=== PATIENT | male | born 1980 | race Caucasian/White ===

== ENCOUNTER 2020-10-05 09:35 | Outpatient (REF) | payer OTHER, SELFPAY ==
[2020-10-05 11:54] LABS: COVID-19 Test Negative (Negative)
== END 2020-10-05 09:36 | disposition home or self-care (01) ==
LOC: HO.EMPCOV 09:35
PROVIDERS: Visit Provider Internal Medicine
DX: Z20.828 Contact with and (suspected) exposure to other viral communicable diseases (principal)
CPT/HCPCS: 87635; C9803

== ENCOUNTER 2020-10-07 | Outpatient (REF) | payer OTHER, SELFPAY ==
[2020-10-09 14:46] LABS: CDIFF Ag Negative (Negative); CDiff Toxin Negative (Negative)
[2020-10-09 14:47] LABS: CDIFF Internal ctrl Dots and bkg OK (V)
[2020-10-15 14:58] LABS: H pylori Ag Stool Not Detected
== END 2020-10-07 00:01 | disposition home or self-care (01) ==
LOC: HO.LNP
PROVIDERS: Visit Provider Nurse Practitioner Family
DX: Z11.0 Encounter for screening for intestinal infectious diseases (principal)
CPT/HCPCS: 87045; 87046; 87177; 87209; 87324; 87338; 87449

== ENCOUNTER 2020-11-01 10:05 | Outpatient (REF) | payer OTHER, SELFPAY ==
[2020-11-01 10:48] LABS: MANUAL DIFF FLAG NO
[2020-11-01 10:52] LABS: Basophils Percent Auto 0.4 % (0-2); Eosinophils Absolute Auto 0.5 X10*3/uL (0.0-0.4); Eosinophils Percent Auto 5.3 % (0-4); Hematocrit 47.6 % (42-52); Hemoglobin 15.9 g/dl (14.0-18.0); Imm Gran Abs Auto 0.03 X10*3/uL (0.00-0.03); Imm Gran Pct Auto 0.3 % (0.0-0.4); Lymphocytes Absolute Auto 3.5 X10*3/uL (1.2-4.9); Lymphocytes Percent Auto 39.2 % (20-40); Mean Corpuscular HGB Conc 33.4 g/dl (31.0-36.0); Mean Corpuscular Hemoglobin 28.9 pg (27.0-33.0); Mean Corpuscular Volume 86.5 fL (80-98); Mean Platelet Volume 10.1 fL (9.4-12.4); Monocytes Absolute Auto 0.7 X10*3/uL (0.1-1.2); Monocytes Percent Auto 8.1 % (2-11); Neutrophils Absolute Auto 4.2 X10*3/uL (2.0-8.3); Neutrophils Percent Auto 46.7 % (45-73); Platelet Count 239 X10*3/uL (160-400); Red Cell Distribution Width 12.8 % (11.0-16.0); White Blood Count 8.9 X10*3/uL (4.8-10.8)
[2020-11-01 10:58] LABS: Estimated Average Glucose 103 mg/dL; Hemoglobin A1c % 5.2 %
[2020-11-01 11:24] LABS: Alanine Aminotransferase 41 U/L (0-40); Albumin Level 4.2 g/dL (3.5-5.0); Alkaline Phosphatase 72 U/L (39-117); Anion Gap 10 (12-20); Aspartate Amino Transferase 28 U/L (5-37); Bilirubin Direct 0.2 mg/dL (0.0-0.5); Bilirubin Total 0.7 mg/dL (0.0-1.0); Blood Urea Nitrogen 13 mg/dL (9-16); Calcium 8.5 mg/dL (8.4-10.2); Carbon Dioxide 25 mmol/L (22-29); Chloride 109 mmol/L (96-108); Cholesterol 144 mg/dL; Estimated Glomerular Filt Rate > 60; Glucose Fasting 92 mg/dL (60-99); HDL Cholesterol 39 mg/dL; LDL Cholesterol Calculated 87 mg/dl; Potassium 4.4 mmol/l (3.3-5.1); Sodium 140 mmol/L (135-145); Total Protein 7.6 g/dL (6.5-8.0); Triglycerides 91 mg/dL
[2020-11-01 11:39] LABS: TSH reflex Free T4 0.43 mIU/mL (0.32-4.0)
== END 2020-11-01 10:06 | disposition home or self-care (01) ==
LOC: HO.LAB 10:05
PROVIDERS: PCP Physician Assistant; Visit Provider Nurse Practitioner Family
DX: Z00.00 Encounter for general adult medical examination without abnormal findings (principal)
CPT/HCPCS: 36415; 80053; 80061; 80076; 82248; 83036; 84443; 85025

== ENCOUNTER 2020-11-25 00:10 | Outpatient (REF) | payer OTHER, SELFPAY ==
[2020-11-25 00:37] LABS: COVID-19 Test Negative (Negative)
== END 2020-11-25 00:11 | disposition home or self-care (01) ==
LOC: HO.LAB 00:10
PROVIDERS: Visit Provider Internal Medicine
DX: Z20.822 Contact with and (suspected) exposure to COVID-19 (principal)
CPT/HCPCS: 36415; 87635

== ENCOUNTER 2021-01-11 07:08 | Emergency (ER) | payer OTHER, SELFPAY ==
--- NOTE | 2021-01-11 07:30 | ED.GENADULT ---
HPI - General Adult General Chief complaint: Extremity Injury, Lower Stated complaint: WORK INJURY - LT KNEE INJURY Time Seen by Provider: 01/11/21 07:22 Source: patient Mode of arrival: ambulatory Limitations: no limitations History of Present Illness HPI narrative: 40-year-old male who presents emergency department for evaluation of bilateral knee pain after a work related injury. 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 He states the Behavioral patient picked up a yoga mat and was kicking the yoga mat. The the patient pulled the yoga mat away from the Behavioral patient and then they both fell to the ground. The patient landed on both of his knees. He states that he was able to get up immediately but since the injury occurred at 6:50 a.m., he has had intermittent pain in both his knees. The pain is worse with movement. The pain is a throbbing pain and is 4/10 at its worst. He did sustain abrasions to both of his knees. The patient did not take any medications prior to coming to the emergency department. He states that his tetanus status is up-to-date. Related Data Allergies Allergy/AdvReac Type Severity Reaction Status Date / Time No Known Allergies Allergy Verified 10/10/20 06:24 [No Known Allergies*] Review of Systems Review of Systems: Yes all other systems are reviewed and are negative [facility] Past Medical History [facility] Narrative: The patient has no medical problems. He denies tobacco, alcohol and drug use. 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 Medical History (Updated 01/11/21 @ 07:41 by Tramaine Escamilla MD) Annual physical exam Surgical History (Updated 10/10/20 @ 06:24 by WENDIE Fontenot) History of removal of cyst Family History Family History (Updated 10/10/20 @ 06:25 by WENDIE Fontenot) Father Hypertension Mother Breast cancer Hypertension Diabetes Maternal Grandmother No problems noted. Brother In good health Sister In good health Son In good health Social History Social History Advance Directives: No Advance Directives Information Provided: No Physical Exam Const: General: cooperative and healthy appearing Nutritional Appearance: overweight Orientation/consciousness: oriented to person and oriented to place Limitations: no limitations HENMT: Head: Yes normal to inspection, Yes normocephalic and Yes atraumatic Ears: external ears normal General nose exam: Normal external nose present Face and sinus: Yes normal facial exam Mouth: Normal oral and palatal mucosa present Throat: Yes posterior oropharynx normal Eyes: Periorbital: periorbital findings normal Eyelids: Yes eyelids normal Conjunctivae: conjunctivae normal Sclerae: sclerae normal Corneas: corneas normal Pupils: Equal, round and reactive pupils present Direct Ophthalmoscopy: normal light reflex Neck: Neck: Yes full ROM, Yes no lymphadenopathy, Yes no meningeal signs, Yes trachea midline and Yes supple Chest: Chest palpation & inspection: normal inspection of the chest and normal palpation of entire chest wall Resp: Effort & Inspection: normal respiratory effort and able to speak in complete sentences Auscultation: clear to auscultation bilaterally Cardio: Rate: regular rate Rhythm: regular rhythm Heart sounds: S1 normal heart sound present, S2 normal heart sound present and no murmurs GI: Inspection: Yes normal to inspection Palpation (GI): Soft to palpation, nontender, no guarding, not rigid and No hepatosplenomegaly present : General: Yes no CVA tenderness Back/Spine/Pelvis: Back: no CVA tenderness Cervical Spine: normal cervical lordosis Thoracic/Lumbar Spine: thoracic and lumbar spine normal to inspection Skin: Lesions: no lesions Rashes: no rashes Wounds: no wounds Neuro: General: oriented to person, oriented to place and no meningeal signs Cranial nerves: Yes CN's II-XII intact bilaterally and Yes Equal, round and reactive pupils present Cognition (Neuro): normal cognition Motor exam (neuro): 5/5 motor strength present throughout Extrem: Other: Patient has a superficial abrasion to the right knee and a deeper abrasion to the left knee, has full range of motion of both knees with increased tenderness with palpation over the patella bilaterally, the patient is able to walk without any difficulty. The extremity is neurovascularly intact. 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 Physical examination did reveal tenderness with knees mainly over the patella areas bilaterally. He does have superficial abrasions of his knees. This time I do not think that he has any fractures therefore I did not get any x-rays. He was treated with ibuprofen 600 mg orally. His abrasions were cleaned and dressed with bacitracin. The patient will be given a note to not return to work this evening and the patient will need to follow-up with employee health prior to his neck shift determine if he can return to work. Discharge Plan Discharge Clinical Impression: Abrasion of both knees Contusion of knee, left Qualifiers: Encounter type: initial encounter Qualified Code(s): S80.02XA - Contusion of left knee, initial encounter Contusion of right knee Qualifiers: Encounter type: initial encounter Qualified Code(s): S80.01XA - Contusion of right knee, initial encounter Patient Disposition: Home, Self-Care Instructions: Knee Pain (ED), Abrasion (ED) Additional Instructions: Apply bacitracin twice a day to abrasions for 1 week. Watch for signs of infection which would include increased redness, increased swelling, increased pain, red streaks going away from the wound, drainage of pus. If you think your wounds are infected follow-up with occupational/employed health or return to the emergency department. Take ibuprofen 200 mg pills, 3 pills every 6 hours as needed for pain. Take Tylenol (acetaminophen) 500 mg pills, 2 pills every 4 to 6 hours as needed for pain. Follow-up with employee health on Wednesday01/13/2021. You need to follow-up with employee health before you can return to work. Please return to the emergency department if your symptoms get worse or if you develop any symptoms that are concerning to you. Stand Alone Forms: Work/School Release
[2021-01-11] MEDS: Ibuprofen 600 MG TABLET PO (07:51)
[2021-01-11] MEDS: Bacitracin Oint 0.9 GM PACKET 1 APPL TOPICAL (07:51)
== END 2021-01-11 08:04 | disposition home or self-care (01) ==
PROVIDERS: Emergency Provider Emergency Medicine Emergency Medical Services; PCP Physician Assistant
DX: S80.02XA Contusion of left knee, initial encounter (principal); S80.01XA Contusion of right knee, initial encounter; S80.212A Abrasion, left knee, initial encounter; S80.211A Abrasion, right knee, initial encounter; W18.39XA Other fall on same level, initial encounter; Y93.89 Activity, other specified; Y92.230 Patient room in hospital as the place of occurrence of the external cause; Y99.0 Civilian activity done for income or pay
CPT/HCPCS: 99282

== ENCOUNTER → 2021-01-13 10:40 | Outpatient (BNVA) | payer OTHER, SELFPAY | PROVIDERS: PCP Physician Assistant; Visit Provider Physician Assistant Medical | DX: Z13.29 Encounter for screening for other suspected endocrine disorder (principal) | CPT/HCPCS: 73564; 99203 ==

== ENCOUNTER → 2021-01-17 07:56 | Outpatient (BNVA) | payer OTHER, SELFPAY | PROVIDERS: PCP Physician Assistant; Visit Provider Physician Assistant Medical | DX: Z13.89 Encounter for screening for other disorder (principal) | CPT/HCPCS: 99213 ==

== ENCOUNTER 2021-09-17 23:42 | Outpatient (REF) | payer OTHER, SELFPAY ==
[2021-09-18 00:09] LABS: COVID-19 Test Negative (Negative)
== END 2021-09-17 23:43 | disposition home or self-care (01) ==
LOC: HO.ED 23:42
PROVIDERS: Visit Provider Internal Medicine
DX: Z20.822 Contact with and (suspected) exposure to COVID-19 (principal)
CPT/HCPCS: 36415; 87635

== ENCOUNTER 2022-08-30 22:59 | Emergency (ER) | payer OTHER, SELFPAY ==
--- NOTE | ~2022-08-30 | XR_ITS ---
EXAMINATION: XR CHEST CLINICAL INFORMATION: Question cracked ribs, pain COMPARISON: None TECHNIQUE: 2 views of the chest were obtained. FINDINGS: Low lung volumes. No focal consolidation or mass. Normal pulmonary vascularity. No pleural effusion or pneumothorax. No displaced rib fractures seen. XR/XR chest 2V IMPRESSION: No displaced rib fractures seen. Consider dedicated rib series as clinically indicated.
[2022-08-30 23:02] VITALS: BP 139/83; PULSE 75; RESP 18; TEMP 36.9; O2SAT 96; BMI 36.3
--- NOTE | 2022-08-31 00:21 | ED_ITS ---
HPI - General Adult General Chief complaint: General Medical Stated complaint: diff breathing, possible broken ribs Time Seen by Provider: 08/31/22 00:20 Source: patient Mode of arrival: ambulatory Limitations: no limitations History of Present Illness HPI narrative: 42-year-old male presents for left-sided rib pain after falling up some stairs while carrying groceries. He is having a difficult time ambulating and moving his arms because of pain. He does not report hitting his head, or losing consciousness. Onset (ago): hour(s) (Within the hour of arrival) Location: chest (Left chest wall) Radiation: non-radiation Severity: moderate Severity scale (1-10): 7 Quality: stabbing and aching Pain Consistency: constant Relieving factors: none Exacerbating factors: movement and other (Inspiration) Associated symptoms: denies other symptoms Treatments prior to arrival: none Related Data Previous Rx's Medication Instructions Recorded oxycodone 5 mg tablet 5 mg PO Q6H PRN pain 3 days #12 08/31/22 tabs Allergies Allergy/AdvReac Type Severity Reaction Status Date / Time No Known Allergies Allergy Verified 10/10/20 06:24 [No Known Allergies*] Review of Systems Review of Systems: Constitutional: No Fever, No Chills ENT/Mouth: No Ear Pain, No Hoarseness, No sore throat Eyes: No Eye Pain, No Swelling, No Redness, No Foreign Body Cardiovascular: No Chest Pain, No SOB Respiratory: No Cough, No Dyspnea Gastrointestinal: No Nausea, No Vomiting, No Diarrhea, No abdominal Pain Genitourinary: No Dysuria, No Hematuria Musculoskeletal: positive left chest wall pain, No Myalgias, No Joint Swelling Skin: No Skin lacerations, No rash Neuro: No Weakness, No Numbness, No Paresthesias, No Loss of Consciousness, No Dizziness, No Headache Psych: No Anxiety/Panic, No Depression Heme/Lymph: no easy bruising, no Lymphadenopathy Endocrine: No Polyuria, No Polydipsia Yes all other systems are reviewed and are negative [facility] Past Medical History Attestation statement: The following information was validated with the patient. Source: old records reviewed Medical History Annual physical exam Surgical History History of removal of cyst Family History Family History Father Hypertension Mother Breast cancer Hypertension Diabetes Maternal Grandmother No problems noted. Brother In good health Sister In good health Son In good health Social History Social History Advance Directives: No Advance Directives Information Provided: Yes Physical Exam ED Vital Signs: Vital Signs - 24 hr 08/30/22 23:02 Temperature 98.5 F Pulse Rate 75 Respiratory Rate 18 Blood Pressure 139/83 Pulse Oximetry 96 Oxygen Delivery Method Room Air BMI result Body Mass Index 36.3 Appearance: Alert. Oriented X3. Moderate distress. Eyes: Pupils equal, round and reactive to light. ENT: Pharynx normal. Neck: Normal inspection. Neck supple. CVS: Normal heart rate and rhythm. Pulses normal. Chest wall tender to palpation to the left side. Bruising and abrasion noted to the lateral 7th and 8th ribs. Respiratory: No respiratory distress. Lung sounds clear to auscultation all lobes. Abdomen: Soft and nontender. Skin: Skin warm and dry. Normal skin color. Normal skin turgor. Extremities: No lower extremity edema. Gait well-balanced well coordinated. Neuro: No motor deficit. No sensory deficit. Cranial nerves 2-12 intact. Course Course Course Narrative: 42-year-old male presents with left-sided chest wall pain after tripping up some stairs while carrying groceries. He landed on his left chest wall, does have a small abrasion and bruising to the left lateral 7th and 8th rib site. Chest x- ray was completed while he was in the emergency department waiting room, which was inconclusive as it was not AFib rib x-ray. At this time patient has even unlabored respirations, lung sounds are clear to auscultation all lobes, patient is not hypoxic, and chest x-ray does not indicate pneumo. At this time I feel it would be unnecessary to order CT scan because patient's clinical presentation is consistent with rib fracture versus rib contusion. Patient agrees with this plan. Will give incentive spirometer, oxycodone for pain management which he does understand has high risk for addiction and abuse, supportive measures recommended her MiraLax, Tylenol and Motrin. Patient verbalized understanding of and agrees to plan of care discharge home. Verbalized understanding of signs and symptoms indicating need for emergent intervention. Medical Decision Making Differential Diagnosis Differential Diagnosis: Pneumothorax, rib fracture, rib contusion, muscular skeletal pain Medical Records Medical records reviewed: Yes I reviewed the patient's medical records. Imaging Data Chest x-ray: Attestation: I personally reviewed and interpreted this imaging study as follows: Radiologist's impression: EXAMINATION: XR CHEST CLINICAL INFORMATION: Question cracked ribs, pain COMPARISON: None TECHNIQUE: 2 views of the chest were obtained. FINDINGS: Low lung volumes. No focal consolidation or mass. Normal pulmonary vascularity. No pleural effusion or pneumothorax.? No displaced rib fractures seen. XR/XR chest 2V IMPRESSION: No displaced rib fractures seen. Consider dedicated rib series as clinically indicated. Discharge Plan Discharge Clinical Impression: Fracture of rib Patient Disposition: Home, Self-Care Instructions: Rib Fracture (ED), Rib Contusion (ED) Additional Instructions: You were evaluated for left-sided rib pain after a fall. Your presentation is highly suspicious for rib fracture and contusion. Please drink plenty of fluids. Use your incentive spirometer 10 times an hour. This incentive spirometer will help reduce the risk for pneumonia during her recovery. Take MiraLax twice a day to help soften stools. Take oxycodone for pain management. This medication is narcotic and has high risk for addiction and abuse. Do not drive or operate machinery while taking this medication. This medication can delay reaction time, increased risk for falls, cause drowsiness, and constipation You must follow-up with the primary care physician this week. You may need a longer time to recover from this injury Thank you for choosing this emergency department for evaluation. Please follow-up with primary care physician as needed. Return to the emergency department for any new, concerning, or worsening symptoms. Prescriptions: New oxycodone 5 mg tablet 5 mg PO Q6H PRN (Reason: pain) 3 Days Qty: 12 0RF Rx Instructions: Partial Fill upon patient request. Rib fracture Stand Alone Forms: Work/School Release Interventions: ED Discharge Assessment Last Done: 08/31/22 00:53 Discharge Date/Time: 08/31/22 00:54
== END 2022-08-31 00:54 | disposition home or self-care (01) ==
PROVIDERS: Emergency Provider Emergency Medicine Emergency Medical Services
DX: S22.42XA Multiple fractures of ribs, left side, initial encounter for closed fracture (principal); W10.8XXA Fall (on) (from) other stairs and steps, initial encounter; Y93.89 Activity, other specified; Y92.038 Other place in apartment as the place of occurrence of the external cause; Y99.9 Unspecified external cause status
CPT/HCPCS: 71046; 94010; 99283

== ENCOUNTER 2023-09-21 09:13 | Outpatient (REF) | payer BC, SELFPAY ==
[2023-09-21 09:59] LABS: Hematocrit 47.9 % (42.0-52.0); Hemoglobin 16.2 g/dl (14.0-18.0); Mean Corpuscular HGB Conc 33.8 g/dl (31.0-36.0); Mean Corpuscular Hemoglobin 29.4 pg (27.0-33.0); Mean Corpuscular Volume 86.9 fL (80.0-98.0); Platelet Count 242 X10*3/uL (160-400); Red Blood Count 5.51 X10*6/uL (4.60-5.80); Red Cell Distribution Width 13.2 % (11.0-16.0); White Blood Count 7.5 X10*3/uL (4.8-10.8)
[2023-09-21 10:08] LABS: Estimated Average Glucose 100 mg/dL; Hemoglobin A1c % 5.1 % (<6.0)
[2023-09-21 10:46] LABS: Prostate Specific Antigen Scr 0.53 ng/mL (<0.05-4.0)
[2023-09-21 10:49] LABS: Alanine Aminotransferase 35 U/L (0-40); Albumin Level 4.3 g/dL (3.5-5.0); Alkaline Phosphatase 69 U/L (39-117); Anion Gap 13 (12-20); Aspartate Amino Transferase 43 U/L (5-37); Blood Urea Nitrogen 11 mg/dL (9-16); Calcium 9.3 mg/dL (8.4-10.2); Carbon Dioxide 25 mmol/L (22-29); Chloride 109 mmol/L (96-108); Cholesterol 147 mg/dL (<200); Estimated Glomerular Filt Rate > 60; Glucose Random 95 mg/dL (60-115); HDL Cholesterol 45 mg/dL (>40); LDL Cholesterol Calculated 87 mg/dL (<100); Potassium 3.7 mmol/L (3.3-5.1); Sodium 143 mmol/L (135-145); Total Protein 7.9 g/dL (6.5-8.0); Triglycerides 77 mg/dL (<150)
[2023-09-21 11:01] LABS: Ferritin 104 ng/mL (20-250); Free T4 (Free Thyroxine) 0.83 ng/dL (0.71-1.85); Insulin 10 uU/mL (2-29); Vitamin D 25-OH Total 27.8 ng/mL (>30)
[2023-09-23 03:14] LABS: Follicle Stimulating Hormone 2.6 mIU/mL (1.4-12.8); Prolactin 8.1 ng/mL (2.0-18.0)
[2023-09-23 17:44] LABS: Homocysteine 10.3 umol/L (<11.4)
[2023-09-23 17:48] LABS: Triiodothyronine T3 Free 3.7 pg/mL (2.3-4.2)
== END 2023-09-21 09:14 | disposition home or self-care (01) ==
LOC: HO.LAB 09:13
PROVIDERS: Visit Provider Physician Assistant
DX: Z12.5 Encounter for screening for malignant neoplasm of prostate (principal); E03.9 Hypothyroidism, unspecified; E11.9 Type 2 diabetes mellitus without complications; E55.9 Vitamin D deficiency, unspecified; D64.9 Anemia, unspecified; E78.5 Hyperlipidemia, unspecified; K76.0 Fatty (change of) liver, not elsewhere classified; R97.20 Elevated prostate specific antigen [PSA]; E78.9 Disorder of lipoprotein metabolism, unspecified; E72.01 Cystinuria
CPT/HCPCS: 36415; 80053; 80061; 82306; 82728; 83001; 83002; 83036; 83090; 83525; 84146; 84153; 84439; 84443; 84481; 85027

== ENCOUNTER 2023-10-25 06:02 | Outpatient (REF) | payer BC, SELFPAY ==
[2023-10-26 17:53] LABS: Follicle Stimulating Hormone 3.5 mIU/mL (1.4-12.8); Lutenizing Hormone 3.7 mIU/mL (1.5-9.3)
[2023-10-29 22:53] LABS: Estradiol Ultra Sensitive 45 pg/mL (< OR = 29)
[2023-10-30 03:34] LABS: Dihydrotestosterone 61 ng/dL (12-65)
[2023-11-05 18:38] LABS: Testosterone, Free 76.4 pg/mL (35.0-155.0); Testosterone, Total 626 ng/dL (250-1100)
== END 2023-10-25 06:03 | disposition home or self-care (01) ==
LOC: HO.LAB 06:02
PROVIDERS: Visit Provider Physician Assistant
DX: E29.1 Testicular hypofunction (principal); R53.83 Other fatigue
CPT/HCPCS: 36415; 82642; 82670; 83001; 83002; 84402; 84403